=== PATIENT | female | born 1955 | race Caucasian/White ===

== ENCOUNTER 2018-06-06 17:08 | Emergency (ER) | payer MEDICARE, OTHER ==
--- NOTE | 2018-06-06 17:29 | PDOC ---
Rapid Medical Evaluation Time Seen by Provider: 06/06/18 17:29 Medical Evaluation: Allergies Allergy/AdvReac Type Severity Reaction Status Date / Time No Known Allergies Allergy Verified 07/19/11 14:26 06/06/18 17:29 I performed a brief in-person evaluation of this patient. Chief complaint is: Dizziness x 1 day, hx NIDDM, HTN Pertinent physical exam findings include: No focal neurologic deficits. I have ordered the following: EKG, labs. Patient will proceed to the ED for further evaluation. Discharge Disposition - Diagnosis Dizziness - Referrals - Patient Instructions - Post Discharge Activity
[2018-06-06 17:33] VITALS: BP 163/76; PULSE 114; TEMP 98.5; BMI 23.3
[2018-06-06 17:57] LABS: BASO % 0.7 % (0-2.0); EOS % 1.9 % (0-4.5); HEMATOCRIT 44.4 % (32.4-45.2); HEMOGLOBIN 15.3 GM/dL (10.7-15.3); LYMPH % 32.3 % (8-40); MCH 30.8 pg (25.7-33.7); MCHC 34.5 g/dl (32.0-36.0); MEAN CELL VOLUME 89.3 fl (80-96); MEAN PLT VOLUME 8.7 fl (7.5-11.1); MONO % 7.1 % (3.8-10.2); PLATELET COUNT 224 K/MM3 (134-434); RBC 4.98 M/mm3 (3.60-5.2); WHITE BLOOD COUNT 6.3 K/mm3 (4.0-10.0)
[2018-06-06 18:04] LABS: URINE APPEARANCE CLEAR; URINE BILIRUBIN NEGATIVE (<2.0 mg/dL); URINE COLOR STRAW; URINE GLUCOSE (UA) 1+ (NEGATIVE); URINE KETONE NEGATIVE (NEGATIVE); URINE LEUK ESTERASE NEGATIVE (NEGATIVE); URINE NITRITE NEGATIVE (NEGATIVE); URINE PROTEIN NEGATIVE (NEGATIVE); URINE UROBILINOGEN NEGATIVE mg/dL (0.2-1.0)
[2018-06-06 18:33] LABS: ALBUMIN 4.5 g/dl (3.4-5.0); ALK PHOS 104 U/L (45-117); ANION GAP 8 MMOL/L (8-16); BILIRUBIN,TOTAL 0.6 mg/dL (0.2-1); BLOOD UREA NITROGEN 13 mg/dL (7-18); CALCIUM 9.5 mg/dL (8.5-10.1); CHLORIDE 102 mmol/L (98-107); CO2 28 mmol/L (21-32); CREATININE 0.7 mg/dL (0.55-1.3); GLUCOSE,RANDOM 178 mg/dL (74-106); POTASSIUM 3.5 mmol/L (3.5-5.1); SGOT/AST 16 U/L (15-37); SGPT/ALT 26 U/L (13-61); SODIUM 138 mmol/L (136-145); TOT PROT 8.1 g/dl (6.4-8.2)
--- NOTE | 2018-06-06 19:01 | PDOC ---
History of Present Illness <Osiris Her - Last Filed: 06/06/18 20:45> - History of Present Illness Initial Comments: 06/06/18 19:01 The patient is a 63 year old female with a PMH of NIDDM, HLD, HTN, Breast CA (s/ p lumpectomy and radiation) presents to our ED c/o a resolved episode of lightheadedness. Patient states she was sitting at home around 4 p.m. when she suddenly felt lightheaded. No associated shortness of breath, palpitations, chest pain, nausea, numbness/tingling, visual changes. Patient remained sitting for 20 minutes and the episode resolved. No previous h/o similar episodes. Currently asymptomatic. Notes she measured her blood sugar at 2 p.m. at it was 77. Patient states she had a few spoonfuls of soup. Repeat BS after the episode was 110. 10 ROS is negative as documented in the HPI including no abdominal pain, diarrhea/constipation, dysuria/hematuria, fevers/chills, recent travel or sick contacts. NKDA Medications: Anastrazole, Statin Surgical: lumpectomy Social: denies toxic habits PMD: Dr. Nancy Jean As per EMR patient last evaluated in our ED in [address] was negative for acute bleed/ischemia and patient was discharged hoem with supportive care. <MortezaNellie - Last Filed: 06/06/18 22:46> - General Chief Complaint: Lightheaded Stated Complaint: DIZZINESS/NECK PAIN Time Seen by Provider: 06/06/18 17:29 Past History <Osiris Her - Last Filed: 06/06/18 20:45> - Past Medical History COPD: No HTN: Yes Thyroid Disease: Yes - Immunization History Td Vaccination: Yes Immunization Up to Date: Yes - Suicide/Smoking/Psychosocial Hx Smoking Status: No Smoking History: Never smoked Have you smoked in the past 12 months: No Number of Cigarettes Smoked Daily: 0 Information on smoking cessation initiated: No Hx Alcohol Use: No Drug/Substance Use Hx: No <Nellie Pro - Last Filed: 06/06/18 22:46> - Past Medical History Allergies/Adverse Reactions: Allergies Allergy/AdvReac Type Severity Reaction Status Date / Time No Known Allergies Allergy Verified 07/19/11 14:26 Home Medications: Ambulatory Orders Rosuvastatin [Crestor -] 20 mg PO DAILY 06/06/18 metFORMIN HCL [Metformin HCl] 500 mg PO BID 06/06/18 Review of Systems - Review of Systems Constitutional: No: Chills, Fever HEENTM: No: Recent change in vision Respiratory: No: Cough, Shortness of Breath Cardiac (ROS): Yes: Lightheadedness. No: Chest Pain, Palpitations, Syncope ABD/GI: Yes: Poor Fluid Intake. No: Constipated, Diarrhea, Nausea, Vomiting : No: Burning, Dysuria <Nellie Pro - Last Filed: 06/06/18 22:46> *Physical Exam - Vital Signs Last Vital Signs Temp Pulse Resp BP Pulse Ox 98.5 F 114 H 16 163/76 100 06/06/18 17:31 06/06/18 17:31 06/06/18 17:31 06/06/18 17:31 06/06/18 17:31 <Osiris Her - Last Filed: 06/06/18 20:45> - Vital Signs Last Vital Signs Temp Pulse Resp BP Pulse Ox 98.5 F 114 H 16 163/76 100 06/06/18 17:31 06/06/18 17:31 06/06/18 17:31 06/06/18 17:31 06/06/18 17:31 - Physical Exam General Appearance: Yes: Nourished, Thin HEENT: positive: Normal Voice, Hearing Grossly Normal Neck: positive: Trachea midline, Supple Respiratory/Chest: positive: Lungs Clear, Normal Breath Sounds. negative: Labored Respiration, Rapid RR Cardiovascular: positive: S1, S2, Systolic Murmur (c/w Aortic Stenosis murmur). negative: Edema Vascular Pulses: Dorsalis-Pedis (R): 2+, Doralis-Pedis (L): 2+ Gastrointestinal/Abdominal: positive: Normal Bowel Sounds, Soft Extremity: positive: Normal Capillary Refill, Normal Inspection Integumentary: positive: Normal Color, Dry, Warm Neurologic: positive: Fully Oriented, Alert <Nellie Pro - Last Filed: 06/06/18 22:46> Moderate Sedation - Procedure Monitoring Vital Signs: Procedure Monitoring Vital Signs Temperature 98.5 F 06/06/18 17:31 Pulse Rate 114 H 06/06/18 17:31 Respiratory Rate 16 06/06/18 17:31 Blood Pressure 163/76 06/06/18 17:31 O2 Sat by Pulse Oximetry (%) 100 06/06/18 17:31 <Osiris Her - Last Filed: 06/06/18 20:45> - Procedure Monitoring Vital Signs: Procedure Monitoring Vital Signs Temperature 98.5 F 06/06/18 17:31 Pulse Rate 114 H 06/06/18 17:31 Respiratory Rate 16 06/06/18 17:31 Blood Pressure 163/76 06/06/18 17:31 O2 Sat by Pulse Oximetry (%) 100 06/06/18 17:31 <MortezaNellie - Last Filed: 06/06/18 22:46> Heart Score/ECG Review - ECG Impressions Comment:: 06/06/18 20:05 Sinus Tachycardia (HR 118) with no JAMES/STD/TWI, poor R wave progression V1-V6. Non-ischemic EKG. <Nellie Pro - Last Filed: 06/06/18 22:46> ED Treatment Course - LABORATORY CBC & Chemistry Diagram: 06/06/18 17:39 06/06/18 17:39 - ADDITIONAL ORDERS Additional order review: Laboratory Results 06/06/18 06/06/18 17:39 17:32 Sodium 138 Potassium 3.5 Chloride 102 Carbon Dioxide 28 Anion Gap 8 BUN 13 Creatinine 0.7 Creat Clearance w eGFR > 60 Random Glucose 178 H Calcium 9.5 Total Bilirubin 0.6 AST 16 ALT 26 Alkaline Phosphatase 104 Creatine Kinase 105 Troponin I < 0.02 Total Protein 8.1 Albumin 4.5 Urine Color Straw Urine Appearance Clear Urine pH 7.0 Ur Specific [place] 1.011 Urine Protein Negative Urine Glucose (UA) 1+ H Urine Ketones Negative Urine Blood Negative Urine Nitrite Negative Urine Bilirubin Negative Urine Urobilinogen Negative Ur Leukocyte Esterase Negative 06/06/18 17:39 RBC 4.98 MCV 89.3 MCHC 34.5 RDW 13.0 MPV 8.7 Neutrophils % 58.0 D Lymphocytes % 32.3 D Monocytes % 7.1 D Eosinophils % 1.9 D Basophils % 0.7 D <Osiris Her - Last Filed: 06/06/18 20:45> - LABORATORY CBC & Chemistry Diagram: 06/06/18 17:39 06/06/18 17:39 - ADDITIONAL ORDERS Additional order review: Laboratory Results 06/06/18 06/06/18 17:39 17:32 Sodium 138 Potassium 3.5 Chloride 102 Carbon Dioxide 28 Anion Gap 8 BUN 13 Creatinine 0.7 Creat Clearance w eGFR > 60 Random Glucose 178 H Calcium 9.5 Total Bilirubin 0.6 AST 16 ALT 26 Alkaline Phosphatase 104 Creatine Kinase 105 Troponin I < 0.02 Total Protein 8.1 Albumin 4.5 Urine Color Straw Urine Appearance Clear Urine pH 7.0 Ur Specific [place] 1.011 Urine Protein Negative Urine Glucose (UA) 1+ H Urine Ketones Negative Urine Blood Negative Urine Nitrite Negative Urine Bilirubin Negative Urine Urobilinogen Negative Ur Leukocyte Esterase Negative 06/06/18 17:39 RBC 4.98 MCV 89.3 MCHC 34.5 RDW 13.0 MPV 8.7 Neutrophils % 58.0 D Lymphocytes % 32.3 D Monocytes % 7.1 D Eosinophils % 1.9 D Basophils % 0.7 D - RADIOLOGY Radiology Studies Ordered: Category Date Time Status HEAD CT WITHOUT CONTRAST [CT] Stat CT Scan 06/06/18 18:58 Ordered <Nellie Pro - Last Filed: 06/06/18 22:46> Medical Decision Making - Medical Decision Making 06/06/18 19:33 63 year old female with isolated episode of lightheadedness. VS unremarkable. No neurologic deficit noted on exam. Frontal diagnosis: r/o CVA/TIA, r/o ACS, also consider hypoglycemia, anemia, electrolyte derangement. Head CT, EKG, Tropnonin, Basic labs pending. Heart Score - will obtain Troponin x2. Reassess. 06/06/18 20:08 Troponin (-) x1 BS 178 CBC, CMP unremarkable Head CT shows no acute ischemic event 06/06/18 21:35 Patient reassessed at bedside. Remains asymptomatic VSS Repeat Troponin drawn 06/06/18 22:37 2nd Troponin (-) 06/06/18 22:39 Patient reassessed @ bedside. Remains asymptomatic. Ambulatory, improved, tolerating PO intake. Will discharge home with return precautions and instruction to follow-up with PMD for further evaluation as necessary. I discussed all the physical exam findings, ancillary test results and final diagnosis with the patient. I answered all of the patient's questions. The patient was satisfied with the care received and felt comfortable with the discharge and treatment plan. The patient will return to the Emergency Department with any new/worsening/concerning symptoms. <Nellie Pro - Last Filed: 06/06/18 22:46> *DC/Admit/Observation/Transfer <Osiris Her - Last Filed: 06/06/18 20:45> - Discharge Dispostion Decision to Admit order: No <Nellie Pro - Last Filed: 06/06/18 22:46> Diagnosis at time of Disposition: Lightheaded - Discharge Dispostion Disposition: HOME Condition at time of disposition: Good - Referrals Referrals: ON STAFF,NOT [Primary Care Provider] - - Patient Instructions Additional Instructions: You were evaluated today for your lightheadedness. All of your labs and a cat scan of your head showed no concerning findings. At this time you are safe for discharge home. Continue to measure your blood sugar at home and eat small frequent meals. Follow up with your primary care doctor in 2 days. Your care is not complete until you are evaluated by your primary care doctor. Return to the Emergency Department for any new/worsening/concerning/finding. - Post Discharge Activity
--- NOTE | 2018-06-06 19:12 | PDOC ---
Attending Attestation - HPI HPI: 06/06/18 20:16 The patient is a 63-year-old female, with a past medical history of HTN, HLD, NIDDM, breast cancer (s/p lumpectomy and radiation), who presents to the ED with lightheadedness. The patient states she was sitting at home around 4PM when her symptoms began; symptoms resolved after remaining seated for 20 minutes. She denies associated chest pain, palpitations, shortness of breath, nausea, vomiting, or visual changes. She denies any numbness or tingling of the extremities. - Physicial Exam PE: 06/06/18 20:18 Agree with resident's exam. - Medical Decision Making 06/06/18 20:[address] was reviewed by Dr. Osorio and over-read by Radiology. Impression <Osiris Her - Last Filed: 06/06/18 20:25> - Resident Resident Name: Claudia Proica - ED Attending Attestation I have performed the following: I have examined & evaluated the patient, The case was reviewed & discussed with the resident, I agree w/resident's findings & plan - Medical Decision Making 06/06/18 20:27 63-year-old female with lightheadedness that she feels was due to lower than normal blood sugars Patient admits to not eating regularly throughout the day She is asymptomatic at this time and states she feels ready to go home She did eat in the emergency department Plan is for DC home after 2 negative troponins <Becky Osorio - Last Filed: 06/06/18 20:28> Attestations - Attestations 06/06/18 20:17 Documentation prepared by Osiris Her, acting as medical writer for Becky Osorio DO. <Osiris Her - Last Filed: 06/06/18 20:25>
[2018-06-06] MEDS ORDERED: SODIUM CHLORIDE 0.9% 500 ML INFUS.BAG IV ONE (20:15)
--- NOTE | 2018-06-07 12:22 | EKG ---
Test Reason : Blood Pressure : / mmHG Vent. Rate : 118 BPM Atrial Rate : 118 BPM P-R Int : 170 ms QRS Dur : 076 ms QT Int : 318 ms P-R-T Axes : 059 -02 001 degrees QTc Int : 445 ms POOR DATA QUALITY, INTERPRETATION MAY BE ADVERSELY AFFECTED SINUS TACHYCARDIA POSSIBLE LEFT ATRIAL ENLARGEMENT INFERIOR INFARCT , AGE UNDETERMINED POSSIBLE ANTERIOR INFARCT , AGE UNDETERMINED ABNORMAL ECG WHEN COMPARED WITH ECG OF 30-MAY-2006 22:27, INFERIOR INFARCT IS NOW PRESENT Confirmed by SAUD MACK MD ([id number]) on 06/07/2018 12:22:15 PM Referred By: Confirmed By:SAUD MACK MD
== END 2018-06-06 23:15 | disposition home or self-care (01) ==
LOC: JER 17:08
PROC: 3E0337Z Introduction of Electrolytic and Water Balance Substance into Peripheral Vein, Percutaneous Approach (ICD-10-PCS; principal; 2018-06-06)
DX: R42 Dizziness and giddiness (principal); E78.5 Hyperlipidemia, unspecified; I10 Essential (primary) hypertension; E11.9 Type 2 diabetes mellitus without complications; Z85.3 Personal history of malignant neoplasm of breast
CPT/HCPCS: 36415; 70450-TC; 71046-TC-FY; 80053; 81003; 82550; 84484; 85025; 93005; 93010; 99283-25

== ENCOUNTER 2018-11-26 21:24 | Emergency (ER) | payer MEDICARE, OTHER ==
[2018-11-26 21:36] VITALS: BP 155/73; PULSE 100; TEMP 98.8; BMI 23.2
--- NOTE | 2018-11-27 00:14 | PDOC ---
Documentation entered by Reji Steven SCRIBE, acting as scribe for Arina Garcia MD. Arina Garcia MD: This documentation has been prepared by the anueTenisha Elijah, SCRIBE, under my direction and personally reviewed by me in its entirety. I confirm that the documentation accurately reflects all work, treatment, procedures, and medical decision making performed by me. History of Present Illness - General Chief Complaint: Edema Stated Complaint: SWELLING TO BOTH FEET SINCE YESTERDAY - History of Present Illness Initial Comments: This 63-year-old woman with a history of HTN, HLD, NIDDM, breast cancer, hypothyroidism presents with bilateral foot swelling for the last 24 hours. The patient states that she has no pain in either leg or foot. There has been no swelling of the ankles/calves or upper legs. She denies shortness of breath/ chest pain/palpitations. She has been taking her medications as prescribed and there has been no recent change in her medications. There has been no trauma to the area and there has been no open wounds/infections locally. No history of fever/chills. According to her daughter, the patient stands "all day long", working around her home (patient is retired). Past History - Past Medical History Allergies/Adverse Reactions: Allergies Allergy/AdvReac Type Severity Reaction Status Date / Time No Known Allergies Allergy Verified 11/26/18 21:26 Home Medications: Ambulatory Orders Rosuvastatin [Crestor -] 20 mg PO DAILY 06/06/18 metFORMIN HCL [Metformin HCl] 500 mg PO BID 06/06/18 Amlodipine Besylate [Norvasc -] 10 mg PO DAILY 11/26/18 Anastrozole [Arimidex] 1 mg PO DAILY 11/26/18 Losartan 50Mg/Hctz 12.5MG [Hyzaar -] 1 tab PO DAILY 11/26/18 COPD: No HTN: Yes Thyroid Disease: Yes - Immunization History Td Vaccination: Yes Immunization Up to Date: Yes - Suicide/Smoking/Psychosocial Hx Smoking Status: No Smoking History: Never smoked Have you smoked in the past 12 months: No Number of Cigarettes Smoked Daily: 0 Hx Alcohol Use: No Drug/Substance Use Hx: No Review of Systems - Review of Systems Able to Perform ROS?: Yes Comments:: 12 point review of systems is negative except for what is noted in the history of present illness *Physical Exam - Vital Signs Last Vital Signs Temp Pulse Resp BP Pulse Ox 98.8 F 100 H 16 155/73 100 11/26/18 21:29 11/26/18 21:29 11/26/18 21:29 11/26/18 21:29 11/26/18 21:29 - Physical Exam Comments: GENERAL: Adult female, alert and oriented 3, in no acute distress HEAD: Normal with no signs of trauma. EYES: PERRLA, EOMI, sclera anicteric, conjunctiva clear. ENT: Ears normal, nares patent, oropharynx clear without exudates. Moist mucous membranes. NECK: Normal range of motion, supple without lymphadenopathy, JVD, or masses. LUNGS: Breath sounds equal, clear to auscultation bilaterally. No wheezes, and no crackles. HEART:Regular rate and rhythm, normal S1 and S2 without murmur, rub or gallop. ABDOMEN:.normal bowel sounds No guarding,tenderness or rebound.No masses No distention. EXTREMITIES: Mild nonpitting edema bilateral feet; no edema of ankles/calves/ thighs No erythema/tenderness/open wounds noted in either foot; strongly palpable pulse in both feet Remainder of the extremity exam is normal NEUROLOGICAL: Cranial nerves II through XII grossly intact. Normal speech. No focal neurological deficits. MUSCULOSKELETAL: Back non-tender to palpation, no CVA tenderness SKIN: Warm, Dry, normal turgor, no rashes or lesions noted. Medical Decision Making - Medical Decision Making This 63-year-old woman presents with 1 day history of bilateral foot edema; she denies pain in the feet/legs; she has no shortness of breath/chest pain/ palpitations/abdominal pain. She notes no other edema in her body. She is on multiple medications for her hypertension/hyperlipidemia/NIDDM but there has been no recent change and she has been taking the medications as prescribed. Exam as noted reveals no evidence of CHF with no JVD/abnormal breath sounds on auscultation of her lungs. Since the patient admits that she is on her feet for most of the day and that her home is quite warm during this summer weather, she has been advised that dependent edema is likely to occur in those circumstances and to elevate her feet as much as possible over the next few days. She has also been advised that she must follow-up with her own doctor within the next few days to be fully evaluated for other reasons for lower leg edema. She should return to the ER if she develops shortness of breath or pain in her legs *DC/Admit/Observation/Transfer Diagnosis at time of Disposition: Edema of both feet - Discharge Dispostion Disposition: HOME Condition at time of disposition: Stable - Referrals - Patient Instructions Printed Discharge Instructions: DI for Peripheral Edema -- Bilateral Additional Instructions: Avoid prolonged standing Elevate legs as much as possible, especially in the hot weather Continue medications as prescribed Follow-up with your doctor within the next 2-3 days Return to ER if you have shortness of breath, pain or severe swelling of her lower legs Print Language: [place]ET[place]ESE - Post Discharge Activity
== END 2018-11-26 22:32 | disposition home or self-care (01) ==
LOC: FER 21:24
DX: M79.89 Other specified soft tissue disorders (principal); I10 Essential (primary) hypertension; E78.00 Pure hypercholesterolemia, unspecified; E03.9 Hypothyroidism, unspecified; Z85.3 Personal history of malignant neoplasm of breast
CPT/HCPCS: 99281-25

== ENCOUNTER 2023-03-29 03:38 | Day surgery (SDC) | payer OTHER ==
[2023-03-27 15:27] VITALS: BMI 23.2
[2023-03-29 09:00] VITALS: TEMP 97.4
[2023-03-29 09:29] VITALS: BP 125/71; PULSE 97; RESP 20
== END 2023-03-29 11:19 | disposition home or self-care (01) ==
LOC: JASU-ENDO 03:38
PROVIDERS: ATTEND Internal Medicine Gastroenterology
PROC: 0DJD8ZZ Inspection of Lower Intestinal Tract, Via Natural or Artificial Opening Endoscopic (ICD-10-PCS; principal; 2023-03-29 08:00)
DX: Z12.11 Encounter for screening for malignant neoplasm of colon (principal); K64.8 Other hemorrhoids; K64.4 Residual hemorrhoidal skin tags
CPT/HCPCS: 82962